=== PATIENT | male | born 2000 | race Two or more races ===

== ENCOUNTER 2023-02-12 15:05 | Emergency (ER) | payer OTHER ==
[~2023-02-12] VITALS: Ht 172.7 cm; Wt 59.1 kg
[2023-02-12 15:12] VITALS: TEMP 98.5
[2023-02-12 15:25] LABS: COVID AG,FIA SOURCE NASAL SWAB
[2023-02-12 15:47] LABS: INFLUENZA TYPE A NEGATIVE FOR TYPE A (NEGATIVE); INFLUENZA TYPE B NEGATIVE FOR TYPE B (NEGATIVE)
[2023-02-12 15:48] LABS: SARS-COV2 (COVID) ANTIGEN,FIA Positive (Negative)
[2023-02-12 18:02] VITALS: BP 132/81; PULSE 86; RESP 18
== END 2023-02-12 18:07 | disposition home or self-care (01) ==
LOC: EMS 15:06
DX: J20.9 Acute bronchitis, unspecified (principal); J06.9 Acute upper respiratory infection, unspecified; U07.1 COVID-19; Z88.0 Allergy status to penicillin; Z88.8 Allergy status to other drugs, medicaments and biological substances
CPT/HCPCS: 71045; 87804; 99284